=== PATIENT | female | born 2000 | race Caucasian/White ===

== ENCOUNTER 2022-12-21 11:51 | Outpatient (CLI) | payer OTHER, SELFPAY ==
--- NOTE | 2022-12-21 12:15 | CRLHL7_ITS ---
For Patients: As a result of the Century Cures Act, medical imaging exams and procedure reports are released immediately into your electronic medical record. You may view this report before your referring provider. If you have questions, please contact your health care provider. INDICATION: Evaluate anatomy. COMPARISON: 10.07.22 TECHNIQUE: Real time james scale imaging of the fetus was performed as well as color Doppler analysis of the umbilical vessels. FINDINGS: Sonographic imaging demonstrates a single living intrauterine gestation. Fetus demonstrates a regular cardiac rate of 149 beats per minute. Fetus has a vertex position. The placenta lies posteriorly without evidence of placenta previa. The edge of the placenta is located 7.5 cm from the internal cervical os. Amniotic fluid volume appears normal. Single deepest vertical pocket: 5.0 cm. The cervix is closed and measures 4.2 cm in length. The composite ultrasound gestational age is calculated at 19 weeks 3 days with an estimated sonographic due date of 05/14/2023. The estimated weight is 278 grams which lies at the 10th %. The following biometric measurements were obtained: Biparietal diameter: 4.5 cm/19 weeks 5 days 38th% Head circumference: 16.5 cm/19 weeks 1 day 11th% Abdominal circumference: 13.7 cm/19 weeks 1 day 17th% Femur length: 3.0 cm/19 weeks 1 day 17th% The HC/AC ratio measures: 1.21 range (1.08-1.26) On anatomic survey, there is a normal appearance of the cerebral ventricles, cavum septi pellucidi, cisterna magna and cerebellum. The profile is difficult to evaluate due to position. The nose, lips and orbital view appear normal. The cervical, thoracic and lumbar spine are well visualized and appear normal. There is a normal four-chamber heart view and the left and right ventricular outflow tracts appear normal. The diaphragm and stomach appear normal. The kidneys and bladder also appear normal. There is a normal three-vessel cord and cord insertion site. The four extremities appear normal. IMPRESSION: Concordance of clinical and sonographic dating. Incomplete visualization of the profile due to position. Remainder of the anatomic survey is normal. Short-term follow-up recommended. Dictated by Norm Kraft MD @ 12/21/2022 1:11:26 PM (Electronically Signed)
== END 2022-12-21 11:52 | disposition home or self-care (01) ==
LOC: US 11:52
PROVIDERS: PCP Nurse Practitioner Family; Visit Provider Physician Assistant
DX: Z34.92 Encounter for supervision of normal pregnancy, unspecified, second trimester (principal); Z3A.19 19 weeks gestation of pregnancy
CPT/HCPCS: 76805

== ENCOUNTER 2023-02-17 11:42 | Outpatient (CLI) | payer OTHER, SELFPAY | END 2023-02-17 11:43 | disposition home or self-care (01) | LOC: NFLDREF 11:43 | PROVIDERS: PCP Nurse Practitioner Family; Visit Provider Advanced Practice Midwife | DX: Z34.93 Encounter for supervision of normal pregnancy, unspecified, third trimester (principal) | CPT/HCPCS: 86592; 86850; J2791 ==

== ENCOUNTER 2023-04-21 13:29 | Outpatient (CLI) | payer OTHER, SELFPAY ==
[2023-04-22 16:47] LABS: Strep B DNA Probe Positive (Negative); Strep B Susceptibility Needed? No
== END 2023-04-21 13:30 | disposition home or self-care (01) ==
LOC: NFLDREF 13:29
PROVIDERS: PCP Nurse Practitioner Family; Visit Provider Advanced Practice Midwife
DX: Z34.93 Encounter for supervision of normal pregnancy, unspecified, third trimester (principal)
CPT/HCPCS: 87081; 87653

== ENCOUNTER 2023-04-28 11:13 | Outpatient (CLI) | payer OTHER, SELFPAY ==
[2023-04-28] VITALS (12 sets, daily range): BP systolic 121–147; BP diastolic 64–84; PULSE 90–114; RESP 18; TEMP 36.9; O2SAT 97–98
--- NOTE | 2023-04-28 14:39 | W.PM.OBO ---
OB Outpatient HPI History of Present Illness Date Seen: 04/28/23 History of Present Illness: Jnaie is a 22 year old at 37 3/7 weeks gestation by 1st trimester US, ANDER 05/16/2023, presents to triage following clinic visit with elevated BP for extended blood pressure monitoring. She denies any headache, visual changes, or epigastric pain. She has been having some more frequent andry lozano but overall coping well with them. She denies any leaking of fluid or bleeding. Baby moving naturally: Yes Bleeding: No Contractions: Yes Leaking fluid: No Discharge: No Heartburn: No Back pain: No Meds Home Medications and Allergies Home Medications Medication Instructions Recorded Confirmed Type cholecalciferol (vitamin D3) 50 50 mcg PO QDAY 10/07/22 04/28/23 History mcg (2,000 unit) capsule prenat.vits,edward,hyr-fkvu-bftxs 1 tab PO QDAY 10/07/22 04/28/23 History psyllium husk 3.4 gram/5.4 gram 1 tsp PO QDAY PRN 10/07/22 04/28/23 History oral powder (Metamucil) doxylamine succinate 25 mg tablet 25 mg PO QHS PRN 11/04/22 04/28/23 History (Unisom (doxylamine)) pyridoxine (vitamin B6) 25 mg 25 mg PO QDAY 11/04/22 04/28/23 History tablet docusate sodium 100 mg capsule 100 mg PO QDAY 03/22/23 04/28/23 History (Dulcolax Stool Softener (docusate)) aspirin 81 mg tablet,delayed 81 mg PO QDAY 04/05/23 04/28/23 History release Allergies Allergy/AdvReac Type Severity Reaction Status Date / Time No Known Drug Allergies Allergy Verified 04/28/23 10:19 REPLACED BY [facility] Medical History Wrist fracture (11/30/10) ?S62.109A - Fracture of unspecified carpal bone, unspecified wrist, initial encounter for closed fracture (ICD-10) Vaginal discharge ?N89.8 - Other specified noninflammatory disorders of vagina (ICD-10) Irregular menstrual cycle ?N92.6 - Irregular menstruation, unspecified (ICD-10) Acquired hallux valgus ?M20.10 - Hallux valgus (acquired), unspecified foot (ICD-10) Surgical History History of oral surgery (2014) ?Z98.890 - Other specified postprocedural states (ICD-10) History of bunionectomy of both great toes (2013) ?Z98.890 - Other specified postprocedural states (ICD-10) History of bilateral breast reduction surgery (10/2017) ?Z98.890 - Other specified postprocedural states (ICD-10) Family History Maternal Grandmother Stroke High blood pressure Thyroid disease Aunt Diabetes Maternal Grandfather Heart disease Social History Narrative: does not drink alcohol, exercises regularly 4-5 times per week, nonsmoker, student,no kids Smoking Status: Never smoker Little interest or pleasure in doing things: not at all Feeling down, depressed, or hopeless: not at all History History 1 Elective abortions Para 0 Spontaneous abortions Hx # Term Pregnancies Ectopic pregnancies Hx # Pregnancies Multiple births Number of Living Children OB - H&P: Exam Physical Exam Vital signs: Temp Pulse Resp BP Pulse Ox 98.4 F 93 18 138/82 98 04/28/23 11:30 04/28/23 14:25 04/28/23 11:30 04/28/23 14:25 04/28/23 11:32 Narrative: Exam done w/ clinic visit. Assessment and Plan Assessment and plan (1) Elevated BP without diagnosis of hypertension: Status: Acute (2) 37 weeks gestation of : Status: Acute Plan at 37 3/7 weeks gestation Elevated BP without diagnosis of HTN After 4 hours of monitoring, BP had normalized. Initially it was in the 140/80's. She denies any further concerns for Pre-eclampsia. Plan for her to return to clinic tomorrow for BP check and possible admission. Reviewed s/sx of pre-eclampsia and labor and when to return. All questions answered.
--- NOTE | 2023-04-28 16:48 | PC.OBNST ---
NST Note NST Note Start: 04/28/23 11:29 Freq: ONCE Status: Active Protocol: Document 04/28/23 15:31 ABDIRAHMAN (Rec: 04/28/23 16:48 ABDIRAHMAN [id number]) NST Note 1 Para (# of births) 0 EDC 05/16/23 Gestational Age In Weeks & Days 37 Weeks & 3 Days Patient Presented with Complaint(s) of Other Other Complaints High blood pressure's in clinic. On unit for observation directly from clinic to determine diagnosis for GHTN. Reactive Yes Appropriate for Gestational Age Yes ROSANGELA Evangelista, RNC Reactive Yes Appropriate for Gestational Age Yes ROSANGELA Santos, RN Date 04/28/23 OB NST charge Yes Complete NST Note via Write Note Yes The provider's electronic signature indicates the NST is reactive/appropriate for gestational age. *Note to provider: If an addendum is required, open the patient's chart and click on the note under the Nurse/Allied Health tab.
== END 2023-04-28 15:36 | disposition home or self-care (01) ==
LOC: OB OUT 11:14 → OB 11:16
PROVIDERS: PCP Nurse Practitioner Family; Visit Provider Advanced Practice Midwife
DX: O16.3 Unspecified maternal hypertension, third trimester (principal); Z3A.37 37 weeks gestation of pregnancy
CPT/HCPCS: 59025; 99213

== ENCOUNTER 2023-05-02 11:51 | Inpatient (IN) | payer OTHER, SELFPAY ==
[2023-04-28 23:00] VITALS: BP 144/83; PULSE 100
--- NOTE | 2023-04-28 23:25 | P.LDBA_ITS ---
Subjective History of Present Illness Date Seen: 04/28/23 Narrative: Janie is a at 37 3/7 weeks gestation being admitted to Labor and Delivery for IOL for GHTN diagnosed by elevated BP more than 4 hours apart. She was seen earlier today in clinic for a routine visit and noted to have elevated BP. She was monitored in triage for 4 hours with normotensive blood pressures at time of discharge with plan to return tomorrow for a BP check in clinic and possible IOL if BP was elevated. She presents this evening to triage for concern of a headache. She said her headache started this evening and she has taken Tylenol but it has not really helped. She feels it is more of a nagging headache but was worried when she knew her BP was elevated in clinic. She has a wrist BP monitor at home which she used to check her BP at home and it was elevated. She denies any other symptoms of pre-e including epigastric pain or blurred vision. She has been having mild contractions but feels they are less than earlier. Her full history and physical was dictated by RAMOS Lopez today, 04/28/2023, in clinic. Please see this for details. Specific Issues/Plans H&P done by RAMOS Lopez on 04/28/2023 1. Obesity, BMI 38.3 * Hemoglobin A1c: 5.0% * Aspirin 81 mg * Consider weekly NST starting at 37 weeks, scheduled 2. History of depression. Has been off treatment for approximately 1 year, doing well. Previously treated with Lexapro 3. History of breast reduction 4. Rh negative * Rhogam: 02/17/2023 * Recommend Rhogam PP 5. EFW 10% at 20 weeks. anatomy normal, however suboptimal views of profile. RESOLVED * Refer to M: ANDER changed by [facility], based on dating LMP, corrected by cycle length (34 days): New ANDER 05/16/2023 Normal anatomy, EFW 51st percentile. Incidentally, placenta is anterior and left lateral, not posterior as suggested by initial anatomy scan. 6. GBS Positive, recommend antibiotics in labor 7. GHTN, dx 04/28 COVID: Declined TDAP: 03/03/2023 Flu: received at 27 weeks RSV: OB - Problem Based A/P Additional Plan (1) Encounter for induction of labor: Status: Acute (2) Gestational hypertension: Status: Acute (3) 37 weeks gestation of : Status: Acute (4) Rh negative status during : Status: Acute (5) Group B Streptococcus carrier, antepartum: Status: Acute Plan ASSESSMENT:? 22 at 37 3/7 weeks gestation? complicated by:?Gestational hypertension, Obesity, hx of depression, hx of breast reduction, Rh negative Labor type: Induced, not in labor? Category 1 FHR pattern.?? Labor complicated by: GHTN? GBS positive? Rh negative ? PLAN:? 1. Routine intrapartum cares as ordered. Discussed IOL options with likely misoprostol or Cervidil. Will consider rest this evening and start IOL in am depending on labs. If any concerns with labs or unable to resolve headache with medication, would recommend starting IOL tonight. 2. Monitoring per policy, continuous? 3. Patient undecided about pain management in labor. Candidate for analgesia of choice if desired. Patient encouraged to reposition and ambulate to promote physiologic labor and .? 4. Continue to monitor BP hourly or more frequent if necessary per protocol. Pre-e labs pending. Discussed dx of severe pre-e if unable to alleviate he adache. Plan to try Reglan for headache. Dr. Patton is aware of patient and agrees with plan. 5. GBS prophylaxis initiated for GBS positive status. Will treat with antibiotics per protocol. 6. Anticipate ? Delivery/Labor/Induction Plan Plan: induction OB Exam Physical Exam Vital signs: Pulse BP 100 144/83 H 04/28/23 23:00 04/28/23 23:00 Narrative: Vitals Reviewed Constitutional:? Alert and oriented x3 HEENT:? Normocephalic, atraumatic Neck:? Supple Lungs:? Clear to auscultation bilaterally Heart:? Regular rate and rhythm, no murmur, rub or gallop Abdomen:? Soft, nontender, and gravid. Vertex by Bert's Extremities:? No edema or erythema Cervix: deferred for now, will check prior to starting IOL NST: 130 bpm/moderate variability/15x15 accelerations/no de celerations/contractions every 3-5 Detailed Labor and Delivery Exam Patient Gravid: Yes
[2023-04-28 23:59] VITALS: BMI 42.3
[2023-04-29] VITALS (29 sets, daily range): BP systolic 113–144; BP diastolic 55–92; PULSE 77–118; RESP 16–18; TEMP 36.6–37.1; O2SAT 81–100
[2023-04-29 00:01] LABS: Alanine Aminotransferase* 24 U/L (4-35); Aspartate Amino Transferase* 30 U/L (12-35); Blood Urea Nitrogen* 8 mg/dL (5-24); Creatinine* 0.6 mg/dL (0.5-1.5); Estimated Glomerular Filt Rate 128 ml/min
[2023-04-29] MEDS: METOCLOPRAMIDE 10 MG TABLET PO (00:12)
[2023-04-29 00:54] LABS: Total Protein Urine 14 mg/dL
[2023-04-29 00:55] LABS: Creatinine Urine 53.8 mg/dL
[2023-04-29 00:59] LABS: Hematocrit 35.2 % (33.0-51.0); Hemoglobin* 11.6 gm/dL (12.0-16.0); Mean Corpuscular HGB Conc 33 gm/dL (32-36); Mean Corpuscular Hemoglobin 28 pg (26-34); Mean Corpuscular Volume 84 fL (80-100); Platelet Count* 149 K/uL (140-440); White Blood Count* 10.92 K/uL (4.50-11.00)
[2023-04-29 01:00] LABS: Slide Review Reflex No
[2023-04-29] MEDS: ACETAMINOPHEN 500 MG TABLET 1000 MG PO (02:04)
[2023-04-29] MEDS: miSOPROStoL 25 MCG/0.25 TABLET VAGINAL ×3 (06:07→12:28)
[2023-04-29] MEDS: ONDANSETRON 2 MG/ML inj 4 MG IV ×2 (07:41→21:38)
--- NOTE | 2023-04-29 16:18 | PM.OBPNL ---
Subjective Date Seen: 04/29/23 Narrative: ?Janie is coping well with labor pain/contractions. ?Magdiel is with her for support. ?She would like to continue with breathing and position changes for comfort and pain management.?She has received 3 doses of vaginal Cytotec. She is now feeling more uncomfortable with contractions and breathing through some of them. Her BP's continue to be elevated highest 144/90. Objective Exam: General Appearance:? Calm, cooperative. ?No acute distress. ? Psychiatric Exam: Alert and oriented, appropriate affect Abdomen: Gravid Ctx: ?Q 2-3 min apart. ? ?Moderate ? FHTs: ?Baseline: 150. ? ? Variability: moderate. ?Accels: +. ? ?Decels: ?-. SVE: 2/75%/+1 Membranes: Intact ? Vital Signs: Last Vital Signs Temp 98.3 F 04/29/23 12:27 Pulse 102 H 04/29/23 15:51 Resp 16 04/29/23 06:05 BP 144/90 H 04/29/23 15:51 Pulse Ox 98 04/29/23 14:52 Plan Plan: Assessment:?? at 37.3 gestation?? GBS Positive Patient is coping well with challenges of labor.?? Labor type: Induced, Early labor? complicated by: Gestational hypertension, Obesity, hx of depression, hx of breast reduction, Rh negative Labor complicated by: Gestational hypertension, Rh negative, GBS positive Plan:?? Hold Cytotec at this time, reevaluate if contractions slow or decrease in intensity. Continue with routine intrapartum cares as ordered.?? Patient encouraged to move and change positions to promote physiologic labor and .?? Nonpharmacologic comfort measures per patient preference. Candidate for analgesia of choice if desired. IV antibiotics for GBS positive status start per protocol. Anticipate progress to NVD. ?
[2023-04-29] MEDS: AMPICILLIN 2 GM in 0.9 % SODIUM CHLORIDE Mini-bag 100 ML IVPB (19:28)
[2023-04-29] MEDS: hydrOXYzine pamoate 25 MG CAPSULE 100 MG PO (19:29)
[2023-04-29] MEDS: MORPHINE 10 MG/ML inj IM (19:29)
[2023-04-29] MEDS: OXYTOCIN 30 unit/500 ML in NS 30 UNIT/500 ML BAG IVPB (21:46)
[2023-04-29] MEDS: LACTATED RINGERS 1000 ML 1,000 ML 124 ML IV (21:46)
--- NOTE | 2023-04-29 22:48 | PM.OBPNL ---
Subjective Date Seen: 04/29/23 Narrative: ?Janie is coping well with labor pain/contractions. ?Kemal is with her for support. ?She would like to continue with rest and repositioning for comfort and pain management. Janie complains of painful contractions that she needs to breath through. Had MS and Vistaril for pain and sleep and is feeling nauseated. Vomited when up to the bathroom. She is having irregular contractions that have not increased in intensity for the last few hours. BP remain stable recently running 120-130/80-90's Objective Exam: VSS, afebrile General Appearance:? Calm, cooperative. ?No acute distress. ? Psychiatric Exam: Alert and oriented, appropriate affect Abdomen: Gravid Ctx: ?Q 2-6 min apart. ? ?Moderate ? FHTs: ?Baseline: 150. ? ? Variability: moderate. ?Accels: +. ? ?Decels: ?variable. SVE: 2/75%/+1 Membranes: Intact ? Vital Signs: Last Vital Signs Temp 98.7 F 04/29/23 19:12 Pulse 109 H 04/29/23 22:21 Resp 18 04/29/23 19:12 BP 124/71 04/29/23 22:21 Pulse Ox 98 04/29/23 14:52 Pelvic Exam Dilation (cm): 2 Effacement (%): 75 Station: +1 Contractions Monitor mode: External Contraction Frequency: 2-6 Contraction pattern: Irregular Contraction intensity: Moderate Assessment Assessment: induction ongoing Station: +1 Status: Category l Heart Rate Baseline: 150 Care Home Variability: Moderate (6-25) Monitor Accelerations: Present Monitor Decelerations: Variable Plan Plan: Assessment:?? at 37.4 gestation?? GBS positive Patient is coping well with challenges of labor.?? Labor type: Induced, Early labor? complicated by: Gestational hypertension, Obesity, hx of depression, hx of breast reduction, Rh negative Labor complicated by: Gestational HTN, Rh negative, GBS positive? Plan:?? Start IV Pitocin per protocol Continue with prophylactic antibiotics for GBS positive status Continue with close monitoring of BP per protocol Continue with routine intrapartum cares as ordered.?? Patient encouraged to move and change positions to promote physiologic labor and .?? Nonpharmacologic comfort measures per patient preference. Candidate for analgesia of choice if desired. Anticipate progress to NVD. ?
[2023-04-29] MEDS: AMPICILLIN 1 GM in 0.9 % SODIUM CHLORIDE Mini-bag 100 ML IVPB (23:05)
[2023-04-30] VITALS (82 sets, daily range): BP systolic 105–144; BP diastolic 52–94; PULSE 84–130; RESP 16–20; TEMP 36.6–37.9; O2SAT 97–100
[2023-04-30] MEDS: AMPICILLIN 1 GM in 0.9 % SODIUM CHLORIDE Mini-bag 100 ML IVPB ×5 (03:13→19:26)
[2023-04-30] MEDS: ONDANSETRON 2 MG/ML inj 4 MG IV ×5 (03:13→19:34)
[2023-04-30] MEDS: LACTATED RINGERS 1000 ML 1,000 ML 119 ML IV (03:17)
--- NOTE | 2023-04-30 06:08 | PM.OBPNL ---
Subjective Date Seen: 04/30/23 Narrative: ?Janie is coping well with labor pain/contractions, she denies feeling pain with most of her contractions. She has been sleeping off and on overnight. ?Kemal is with her for support. She had been doing the labor circuit last evening before bedtime but after being tucked into bed for the night wanted to sleep and reluctant to move and change positions including use of the peanut ball. She is currently up in the shower getting ready for the day. Objective Exam: VSS, afebrile General Appearance:? Calm, cooperative. ?No acute distress. ? Psychiatric Exam: Alert and oriented, appropriate affect Abdomen: Gravid Ctx: ?Q 2-6 min apart. ?Mild ? ? FHTs: ?Baseline: 145. ? ? Variability: minimal with short periods of moderate. ?Accels: +. ? ?Decels: ?periodic late. SVE: /+1 Membranes: Intact ? Vital Signs: Last Vital Signs Temp 98.7 F 04/30/23 05:41 Pulse 97 04/30/23 05:41 Resp 18 04/30/23 05:41 BP 126/90 H 04/30/23 05:41 Pulse Ox 98 04/29/23 14:52 Pelvic Exam Dilation (cm): 2 Effacement (%): 75 Station: +1 Contractions Monitor mode: External Contraction pattern: Irregular Contraction intensity: Moderate Pitocin Rate (mU/min): 6 Assessment Assessment: induction ongoing Station: +1 Status: Category l Heart Rate Baseline: 145 Monitor Accelerations: Present Monitor Decelerations: Episodic (late variables ) Tracing Comments: Has had periods of minimal variability with short periods of moderate. Plan Plan: Assessment:?? at 37.5 gestation?? GBS positive Patient is coping well with challenges of labor.?? Labor type: Induced, Early labor? complicated by: Gestational hypertension, Obesity, hx of depression, hx of breast reduction, Rh negative Labor complicated by: Gestational HTN, Rh negative, GBS positive? Plan:?? IV Pitocin per protocol, titrate per protocol. Continue with prophylactic antibiotics for GBS positive status Continue with close monitoring of BP per protocol Continue with routine intrapartum cares as ordered.?? Patient encouraged to move and change positions to promote physiologic labor and .?? Nonpharmacologic comfort measures per patient preference. Candidate for analgesia of choice if desired. Anticipate progress to NVD. ?
[2023-04-30] MEDS: ACETAMINOPHEN 500 MG TABLET 1000 MG PO (06:58)
--- NOTE | 2023-04-30 08:10 | PM.OBPNL ---
Subjective Date Seen: 04/30/23 Narrative: tracing was initially (around 0700) minimal to absent variability without accels or decels. After position change and IV fluid bolus the tracing improved to minimal to moderate variability. Janie, her and I had a discussion about a plan moving forward. We did discuss that if the strip continue to show minimal to absent variability without improvement that we would consult with the OB provider and the possibility of a section. We discuss rational for this and answered questions. We also discussed that with improved status options of Cytotec, Cervidil, and cook catheter. Discussed that Cytotec would not be advised at this time due to status. We discussed the possibility of Cervidil since it could be removed if necessary and the possible risks involved. Finally we discussed the cook catheter. After discussing the risks and benefits of each it was decided to proceed with the cook catheter. we can consider Pitocin with the cook catheter based on patient tolerance, status, and contractions. A cook was placed at 0805 with 60mL in each balloon. She tolerated it fail with lots of cramping. She did request nitrous to help with the pain. After placement tracing was improved with moderate variability, + accels, and -decels. I did encourage activity for labor progression and pain coping after placement of the cook. Will continue to monitor. Objective Vital Signs: Last Vital Signs Temp 97.9 F 04/30/23 06:48 Pulse 104 H 04/30/23 07:21 Resp 18 04/30/23 06:48 BP 113/73 04/30/23 07:21 Pulse Ox 97 04/30/23 06:47 Pelvic Exam Dilation (cm): 2 Effacement (%): 75 Station: -1 Contractions Monitor mode: External Contraction Frequency: occaional, patient denies feeling anything besides occasional cramping Contraction pattern: Irregular Contraction intensity: Moderate Pitocin Rate (mU/min): 0 Assessment Assessment: induction ongoing Station: -1 Status: Category l Heart Rate Baseline: 150 Long-Term Variability: Minimal (3-5) (had absent, then minimal, increased to moderate at time of cook placement) Monitor Accelerations: Present Monitor Decelerations: None Plan Plan: Induction ongoing. Cook placed. Anticipate . Monitor blood pressure per protocol. Continue with prophylactic antibiotics per unit policy.
[2023-04-30] MEDS: LACTATED RINGERS 1000 ML 1,000 ML 125 ML IV (11:00)
--- NOTE | 2023-04-30 12:30 | P.OBPN_ITS ---
Subjective Date Seen: 04/30/23 Narrative: Reported that the Cook balloon fell out. On SVE she was found to be 3-4cm with a bulging bag. She was not feeling some contractions at that time. Low dose Pitocin had been added before the cook fell out. Will plan to continue with Pitocin titration and will consider AROM if there is not much change. She thinks she would like an epidural before AROM but is not ready for it at this time. tracing is improved. It is a category 2 with moderate variability, good accels, and only occasional variable decels. Objective Vital Signs: Last Vital Signs Temp 97.9 F 04/30/23 06:48 Pulse 88 04/30/23 12:28 Resp 18 04/30/23 06:48 BP 123/66 04/30/23 12:28 Pulse Ox 97 04/30/23 06:47 Pelvic Exam Dilation (cm): 2 Effacement (%): 75 Station: -1 Contractions Monitor mode: External Contraction pattern: Irregular Contraction intensity: Moderate Pitocin Rate (mU/min): 0 Assessment Assessment: induction ongoing Station: -1 Status: Category l Heart Rate Baseline: 150 Reverse Unit Operator Fisherman Variability: Moderate (6-25) Monitor Accelerations: Present Monitor Decelerations: None Plan Plan: Continue Pitocin titration. Monitor blood pressures per policy. Epidural when desires. Encourage position changes. Consider AROM based on labor progression.
[2023-04-30] MEDS: LACTATED RINGERS 1000 ML 1,000 ML 999 ML IV (16:34)
[2023-04-30] MEDS: ROPIVACAINE 0.2% 100 ml 100 ML 12 MG EPIDURAL (16:35)
[2023-04-30] MEDS: LIDOCAINE 2% (PF) 5 ML VIAL EPIDURAL (16:35)
[2023-04-30] MEDS: fentaNYL 250 MCG/5 ML inj 100 MCG EPIDURAL (16:45)
--- NOTE | 2023-04-30 17:02 | P.ANBPRC_ITS ---
[facility] Medical History (Updated 04/28/23 @ 23:39 by Tana Haywood CNM) Wrist fracture (11/30/10) ?S62.109A - Fracture of unspecified carpal bone, unspecified wrist, initial encounter for closed fracture (ICD-10) Vaginal discharge ?N89.8 - Other specified noninflammatory disorders of vagina (ICD-10) Irregular menstrual cycle ?N92.6 - Irregular menstruation, unspecified (ICD-10) Acquired hallux valgus ?M20.10 - Hallux valgus (acquired), unspecified foot (ICD-10) Surgical History (Updated 04/28/23 @ 23:40 by Tana Haywood CNM) History of oral surgery (2014) ?Z98.890 - Other specified postprocedural states (ICD-10) History of bunionectomy of both great toes (2013) ?Z98.890 - Other specified postprocedural states (ICD-10) History of bilateral breast reduction surgery (10/2017) ?Z98.890 - Other specified postprocedural states (ICD-10) Family History Maternal Grandmother Stroke High blood pressure Thyroid disease Aunt Diabetes Maternal Grandfather Heart disease Social History Narrative: does not drink alcohol, exercises regularly 4-5 times per week, nonsmoker, student,no kids What is your current living situation?: I presently have a place to live Problems where you live: no known problems In the past 12 months, utilities in danger of being shut off: no In past 12 months, lack of transportation kept you from medical appts, meetings, work, or getting things needed for daily living: no In the past 12 mos, have been you worried that your food would run out before you had money to buy more?: never true In the past 12 mos, the food you bought just didn't last and you didn't have money to buy more?: never true Smoking Status: Never smoker How often does anyone, including family, friends and others, physically hurt you : never How often does anyone, including family, friends and others, insult or talk down to you: never How often does anyone, including family, friends and others, threaten you with harm: never How often does anyone, including family, friends and others, scream or curse at you: never Little interest or pleasure in doing things: not at all Feeling down, depressed, or hopeless: not at all Meds Home Medications and Allergies Home Medications Medication Instructions Recorded Confirmed Type cholecalciferol (vitamin D3) 50 50 mcg PO QDAY 10/07/22 04/29/23 History mcg (2,000 unit) capsule prenat.vits,edward,[id number] 1 tab PO QDAY 10/07/22 04/29/23 History psyllium husk 3.4 gram/5.4 gram 1 tsp PO QDAY PRN 10/07/22 04/29/23 History oral powder (Metamucil) doxylamine succinate 25 mg tablet 25 mg PO QHS PRN 11/04/22 04/29/23 History (Unisom (doxylamine)) pyridoxine (vitamin B6) 25 mg 25 mg PO QDAY 11/04/22 04/29/23 History tablet docusate sodium 100 mg capsule 100 mg PO QDAY 03/22/23 04/29/23 History (Dulcolax Stool Softener (docusate)) aspirin 81 mg tablet,delayed 81 mg PO QDAY 04/05/23 04/29/23 History release Allergies Allergy/AdvReac Type Severity Reaction Status Date / Time No Known Drug Allergies Allergy Verified 04/28/23 10:19 Results Vital Signs Vital Signs: Last Vital Signs Temp 97.9 F 04/30/23 06:48 Pulse 108 H 04/30/23 16:56 Resp 18 04/30/23 06:48 BP 120/68 04/30/23 16:56 Pulse Ox 100 04/30/23 16:59 Weight: 110.949 kg Height: 162.56 cm Anesthesia Procedures Epidural Insertion Patient Location: OB Start Time: 16:15 Stop Time: 17:15 Start Date: 04/30/23 Stop Date: 04/30/23 Reason for Block: primary anesthetic Patient Position: sitting Performed By: Samuel Cobos Preanesthetic Checklist: IV checked, risks and benefits discussed, surgical consent, monitors and equipment checked, pre-op evaluation, timeout performed and anesthesia consent Prep: chlorhexidine gluconate Monitoring: blood pressure monitoring, gambling monitor, continuous pulse oximetry and heart rate Approach: midline Vertebral Space: lumbar (1-5) Needle Type: Tuohy needle Injection Technique: continuous catheter Needle gauge: 17 Needle Length (cm): 10 cm Needle Insertion Depth (cm): 6 Catheter Gauge: 19 Catheter Type: multi-orifice Catheter at skin depth (cm): 12 Test Dose Result: negative and lidocaine 1.5% with epinephrine 1 to 200,000 Events: other
[2023-04-30] MEDS: PHENYLEPHRINE 100 MCG/ML SYRINGE IVP ×4 (17:19→19:27)
--- NOTE | 2023-04-30 19:57 | PM.OBPNL ---
Subjective Date Seen: 04/30/23 Narrative: I was called at 0530 for a prolonged deceleration down to the 40-60's. it recovered after approximately 5 minutes with position changes stopping Pitocin infusion, and IV fluid bolus. There was continued minimal to absent variability for the next 20-25 minutes. After baby had adequately recovered we discussed AROM vs restarting Pitocin titration. She would like to proceed with AROM. AROM with clear fluid was completed at 1841 and baby tolerated it well. tracing continued to look good with minimal variability and accelerations without decelerations. At 1936 there was another prolonged deceleration to the 80's that lasted 5 minutes. Baby recovered with position changes. A FSE was placed at that time to verify tracing. At that time I had a discussion with the patient and her and tolerance and remote from delivery. We discussed involving the OB provider for consultation to consider a delivery. She is agreeable to proceeding with a delivery if that is what is recommended stating that she would like to avoid an emergent delivery if possible. Dr. Gloria was called for consultation. We briefly discussed what to expect from a caesarean delivery and recovery. All questions were answered. Objective Vital Signs: Last Vital Signs Temp 97.9 F 04/30/23 06:48 Pulse 126 H 04/30/23 19:43 Resp 18 04/30/23 06:48 BP 141/76 H 04/30/23 19:43 Pulse Ox 100 04/30/23 17:30 Pelvic Exam Dilation (cm): 6 Effacement (%): 80 Station: -1 Contractions Monitor mode: External Contraction Frequency: occasional, mild to palpation Contraction pattern: Irregular Contraction intensity: Mild Pitocin Rate (mU/min): 0 Assessment Assessment: induction ongoing Station: -1 Amniotic Membrane Status: AROM Status: Category l Heart Rate Baseline: 155 Group Home Variability: Moderate (6-25) (minimal to moderate ) Monitor Accelerations: Present Monitor Decelerations: None Plan Plan: OB consultation for possible delivery.
--- NOTE | 2023-04-30 20:17 | P.OBCN_ITS ---
OB - CN: HPI Date of Consult Time Seen by Provider: 20:18 Date Seen: 04/30/23 Patient: [facility] Patient Consult date: 04/30/23 Requesting Physician: Eliza Pacheco CNM Primary Care Provider: Dahlia Garcia CNP Consult Narrative Reason for consult: nonreassuring FHTs Narrative: Janie is a 22 year old G 1 P 0 at 37.5 weeks gestation that was admitted to the Center on 04/28/23 for IOL due to gestational hypertension. Since early induction, patient's had intermittent late decelerations. She had a prolonged deceleration after epidural placement at 1720 to the 60s for 7 minutes. She was on 9u of pitocin since at that time. Pitocin was turned off. At 1936 she had another spontaneous 6 minutes decels. Pitocin was off at that time. Pitocin was unable to be started due to minimal variability after the first prolonged decel. She is currently 6/80/-1 with AROM at 1840. Minimal contractions without pitocin. Discussed that we are unable to start pitocin and given that she is not in labor on her own, it is unlikely that she'll be able to have a vaginal delive ry. She would feel more comfortable with proceed with delivery as she wants to avoid needing an emergency delivery. History History 1 Elective abortions Para 0 Spontaneous abortions Hx # Term Pregnancies Ectopic pregnancies Hx # Pregnancies Multiple births Number of Living Children 0 Labs GBS status: positive OB Labs: Lab Assessment Start: 04/28/23 23:08 Freq: ONCE Status: Complete Protocol: PC.OBGBS Activity Type Activity Date Activity User E-sign Co-sign Detail Recorded Client Recorded Date Recorded By Document 04/29/23 01:04 MISTI [id number] 04/29/23 01:04 MISTI 04/29/23 01:04 Lab Assessment GBS Status positive Is Patient Allergic to Penicillin? No Treatment Required OK Are Labs Available Yes Maternal Blood Type AB Maternal RH Factor Negative Evaluate Maternal Rubella Immune Status Immune Hepatitis B Surface Antigen Negative Maternal HIV Status Negative Maternal Syphillis (RPR) Status Negative [facility] Medical History (Updated 04/28/23 @ 23:39 by Tana Haywood CNM) Wrist fracture (11/30/10) ?S62.109A - Fracture of unspecified carpal bone, unspecified wrist, initial encounter for closed fracture (ICD-10) Vaginal discharge ?N89.8 - Other specified noninflammatory disorders of vagina (ICD-10) Irregular menstrual cycle ?N92.6 - Irregular menstruation, unspecified (ICD-10) Acquired hallux valgus ?M20.10 - Hallux valgus (acquired), unspecified foot (ICD-10) Surgical History (Updated 04/28/23 @ 23:40 by Tana Haywood CNM) History of oral surgery (2014) ?Z98.890 - Other specified postprocedural states (ICD-10) History of bunionectomy of both great toes (2013) ?Z98.890 - Other specified postprocedural states (ICD-10) History of bilateral breast reduction surgery (10/2017) ?Z98.890 - Other specified postprocedural states (ICD-10) Family History Maternal Grandmother Stroke High blood pressure Thyroid disease Aunt Diabetes Maternal Grandfather Heart disease Social History Narrative: does not drink alcohol, exercises regularly 4-5 times per week, nonsmoker, student,no kids What is your current living situation?: I presently have a place to live Problems where you live: no known problems In the past 12 months, utilities in danger of being shut off: no In past 12 months, lack of transportation kept you from medical appts, meetings, work, or getting things needed for daily living: no In the past 12 mos, have been you worried that your food would run out before you had money to buy more?: never true In the past 12 mos, the food you bought just didn't last and you didn't have money to buy more?: never true Smoking Status: Never smoker How often does anyone, including family, friends and others, physically hurt you : never How often does anyone, including family, friends and others, insult or talk down to you: never How often does anyone, including family, friends and others, threaten you with harm: never How often does anyone, including family, friends and others, scream or curse at you: never Little interest or pleasure in doing things: not at all Feeling down, depressed, or hopeless: not at all Meds Home Medications and Allergies Home Medications Medication Instructions Recorded Confirmed Type cholecalciferol (vitamin D3) 50 50 mcg PO QDAY 10/07/22 04/29/23 History mcg (2,000 unit) capsule prenat.vits,edward,[id number] 1 tab PO QDAY 10/07/22 04/29/23 History psyllium husk 3.4 gram/5.4 gram 1 tsp PO QDAY PRN 10/07/22 04/29/23 History oral powder (Metamucil) doxylamine succinate 25 mg tablet 25 mg PO QHS PRN 11/04/22 04/29/23 History (Unisom (doxylamine)) pyridoxine (vitamin B6) 25 mg 25 mg PO QDAY 11/04/22 04/29/23 History tablet docusate sodium 100 mg capsule 100 mg PO QDAY 03/22/23 04/29/23 History (Dulcolax Stool Softener (docusate)) aspirin 81 mg tablet,delayed 81 mg PO QDAY 04/05/23 04/29/23 History release Allergies Allergy/AdvReac Type Severity Reaction Status Date / Time No Known Drug Allergies Allergy Verified 04/28/23 10:19 OB - H&P: Exam Physical Exam: Vital signs: Temp Pulse Resp BP Pulse Ox 98.6 F 103 H 18 140/73 H 100 04/30/23 18:30 04/30/23 20:12 04/30/23 18:30 04/30/23 20:12 04/30/23 17:30 Narrative: Physical exam: General: No acute distress. In left lateral decubitus. Psych: Alert and oriented x3, full affect HEENT: Normocephalic, atraumatic Lungs: Unlabored breathing Neuro: No focal deficit. Mentating appropriately Abdomen: Gravid. Soft, nontender, nondistended. Pelvic exam: Deferred to OR OB - CN: A/P Assessment and Plan (1) Encounter for induction of labor: Status: Acute (2) Gestational hypertension: Status: Acute (3) 37 weeks gestation of : Status: Acute (4) Rh negative status during : Status: Acute (5) Group B Streptococcus carrier, antepartum: Status: Acute Plan CS Consent The patient was consented for section and blood. She understands that the four main categories of risk include pain, bleeding, infection, and damage to surrounding structures. Regarding infection, she understands that we will be delivering appropriate antibiotics, however that the risk of infection following section still is approximately 5%. She understands that though the risk is very low that there is always a risk of damage to the bladder, uterus, ovaries, fallopian tubes, bowels, ureters, or even the fetus. She understands that most injuries can be addressed at the time of surgery, however, such an injury may require additional surgeries to fix. Lastly, she understands that a section carries a risk of bleeding, and that while this bleeding can be addressed with multiple medical and surgical modalities, that there is the possibility of needing a blood transfusion. She reports she would accept a blood transfusion. She understands that a section does increase risks for future pregnancies and deliveries including, but not limited to, the risk of uterine rupture or placenta accreta. Hgb/ plt: 11.9/146 T&S: AB negative NST: 155 bpm baseline, moderate variability, positive acceleration, negative deceleration Radar Base: irritable Will proceed with delivery. OR team notified.
[2023-04-30] MEDS: CEFAZOLIN 2 GM INJ IVP (20:18)
[2023-04-30] MEDS: CEFAZOLIN 1 GM inj IVP (20:19)
[2023-04-30 20:24] LABS: Basophils Percent Auto 0.1 % (0.0-3.0); Hematocrit 36.2 % (33.0-51.0); Hemoglobin* 11.9 gm/dL (12.0-16.0); Immature Granulocytes Pct Auto 0.2 %; Mean Corpuscular HGB Conc 33 gm/dL (32-36); Mean Corpuscular Hemoglobin 27 pg (26-34); Mean Corpuscular Volume 83 fL (80-100); Neutrophils Percent Auto 84.7 % (42.0-72.0); Platelet Count* 146 K/uL (140-440); RDW Coefficient of Variation % 13.5 % (11.5-15.5); Red Blood Count 4.35 m/uL (4.00-5.20); White Blood Count* 13.61 K/uL (4.50-11.00)
[2023-04-30 20:29] LABS: Slide Review Reflex No
[2023-04-30] MEDS: AZITHROMYCIN 500 MG in 0.9 % SODIUM CHLORIDE 250 ml 250 ML 255 MG IVPB (21:10)
[2023-04-30] MEDS: KETOROLAC 30 MG/ML inj IVP (21:44)
--- NOTE | 2023-04-30 21:48 | P.OBPRC_ITS ---
Procedure Time Seen by Provider: 21:49 Date of procedure: 04/30/23 Procedure Done: Global Will [facility] bill your pro fee for this procedure?: Yes Blood Loss Measurement Type: QBL (585 mL) Bakri Used: No IV fluids (mL): 1,000 Urine Output (mL): 400 Urine Output Comment: Clear Anesthesia Type: Epidural Procedure Description: DELIVERY BY SECTION Date of Service: 04/30/2023 Delivery time: 2104 Summary: Admitted for induction of labor at 37 weeks 3 days due to gestational hypertension, Primary Lower uterine transverse section, Pfannenstiel, Closed with suture, QBL 585 cc, no complications Findings: Normal uterus, bilateral ovaries and tubes. Fetus in OP position. 8/9 Weight pending. Primary Indication: 1. Nonreassuring heart rate remote from delivery Procedures: Primary Lower uterine transverse section Specimens Removed: Placenta Surgeon: Annetta Gloria MD Anesthesia: Epidural and TAP Report: Prophylactic antibiotic, 3 g of Ancef and 500 mg Azithromycin was given before patient was taken to OR. After arrival to the operating room patient was placed in the supine position with left lateral tilt after bolus of epidural anesthesia. Laparotomy A pfannenstiel incision was made through the anterior abdominal wall with #10 scalpel approximately 2 cm above the pubic symphysis. The incision was extended sharply with the #10 scalpel through the subcutaneous tissue to the level of fascia. The fascia was entered sharply with a #10 scalpel (Pfannenstiel) in the midline and extended in semi-elliptical fashion bluntly with digits. The rectus muscles were in the midline bluntly with digits. The peritoneum was then entered bluntly. The peritoneal incision was then extended superiorly and inferiorly under direct visualization with care being taken to avoid bladder and bowel. No adhesions were noted. The peritoneal incision was enlarged bluntly by lateral traction from the surgeon's and waiter/waitress first class's hand. Noé retractor was inserted into the abdomen. Delivery A bladder flap was not developed as it was low off the lower uterine segment. A low transverse hysterotomy was made then with #10 scalpel and extended laterally and cephalad with fingers in a low transverse fashion with Manu Man technique with care being taken to avoid injury to the fetus. The amniotic cavity (membrane) was then entered with spontaneous rupture of membrane, and the amniotic fluid was noted to be clear, fetus was delivered cephalic. With delivery of the baby, 2 cm left uterine angle extension noted. Placenta was delivered spontaneously with steady traction on cord and manual separation of placenta from uterine wall. Closure Uterine cavity was cleaned after placental delivery with lap sponge x 2. Left uterine extension was closed with 0 Vicryl suture in a running locking continuous fashion. This was incorporated into the hysterotomy. The hysterotomy was closed in 2 layers with stitches using 0 Vicryl with continuous locking stitches. An imbricating layer of 0 Monocryl was placed. One figure of 8 placed at the left hysterotomy angle. Another pipetx-zh-uwoks was placed at the right hysterotomy angle. Hemostasis was achieved as needed with electrocautery. The ovaries/tubes/uterine surface were evaluated. They were found to be normal. Noé retractor removed and hemostasis was confirmed again. Suellen applied along the hysterotomy. Fascia was closed with running stitches using 0 Vicryl. Subcutaneous layer was irrigated. Hemostasis was checked for and found to be adequate. The subcutaneous layer was closed with running 2-0 chromic sutures. The skin was closed with monocryl subcuticular sutures . The incision was cleaned, Exofin applied, Mepilex was used as dressing. The procedure considered terminate at this time. Intraoperative Complications: None QBL: 585 cc Uterotonics: 40 units of Pitocin and 1 g of TXA Disposition: The patient tolerated the procedure well. She was recovered in Obstetric PACU for close monitoring in stable condition, with a contracted uterus and normal transvaginal bleeding. The infant was sent to mother?s bedside. The placenta was sent to pathology due to gestational hypertension nonreassuring heart rate tracing Debrief with OR team performed and specimen reviewed at the conclusion of the procedure. Pathology: specimen obtained, sent to pathology (Placenta) Surgery Debrief Performed: Yes Condition: stable Disposition: floor
--- NOTE | 2023-04-30 22:12 | P.ANES_ITS ---
Anesthesia Charges Start Date/Time Anesthesia Start Date: 04/30/23 Anesthesia Start Time: 20:49 Stop Date/Time Anesthesia Stop Date: 04/30/23 Anesthesia Stop Time: 22:09 Summary Emergency: [employer]GER
--- NOTE | 2023-04-30 22:13 | W.PM.NB ---
Nerve Block Nerve Block Time Seen by Provider: 22:00 Date Seen: 04/30/23 Type of block requested by surgeon for post-operative analgesia: TAP Side: bilateral Time out performed: Yes Verification of patient name: Yes Verification of date of : Yes Site marking: not applicable Name of person performing procedure: alexei Continuous monitoring Was continuous monitoring of O2 sat, B/P, court recording monitor, recorded every 15 minutes?: Yes Procedure Checklist: sterile prep and needles Ultrasound guided. Images saved: Yes Medications given in 5ml increments after negative aspiration: Marcaine %: 0.25 mL: 30 Needle gauge: 20 and Exparel mL: 10 Needle gauge: 20 Patient tolerated procedure well: Yes Block Charges Block Charge (with Pro Fee): TAP Bilateral Use of Ultrasound Machine for Block: Yes- US Guidance/pain block
[2023-05-01] VITALS (32 sets, daily range): BP systolic 118–129; BP diastolic 76–84; PULSE 81–104; RESP 16–18; TEMP 36.6–37.2; O2SAT 96–98
[2023-05-01] MEDS: KETOROLAC 30 MG/ML inj IVP ×3 (04:07→16:01)
[2023-05-01] MEDS: ENOXAPARIN 40 MG/0.4 ML INJ SUBCUT (04:07)
[2023-05-01] MEDS: SODIUM CHLORIDE 0.9 % (FLUSH) 10 ML SYRINGE IVF ×2 (04:08→16:03)
--- NOTE | 2023-05-01 09:33 | PM.OBPNVD1 ---
OB - PN:Subj Subjective Time Seen by Provider: 09:34 Date Seen: 05/01/23 Narrative: Overnight patient had no complaints. Her pain is well controlled on oral pain medications. Currently endorsing no pain and just cramping. She is tolerating a regular diet. She has passed flatus. She is not ambulating without difficulty yet. Reports that the area is to have her ambulate after breakfast. Lochia is scant. She is urinating with goodman. Patient denies chest pain, SOB, n/v, headache, RUQ pain, vision changes, dizziness. OB - PN: Obj Exam Physical Exam: Vital signs: Temp Pulse Resp BP Pulse Ox O2 Del Method 98.9 F 88 18 121/79 97 Room Air 05/01/23 07:30 05/01/23 07:30 05/01/23 08:15 05/01/23 07:30 05/01/23 07:30 05/01/23 07:30 Narrative: Physical exam: General: No acute distress Psych: Alert and oriented x4, full affect HEENT: Normocephalic, atraumatic Neck: No cervical adenopathy, no thyromegaly Heart: Regular rate and rhythm, no murmur rub or gallop Lungs: Clear to auscultation bilaterally Abdomen: Normoactive bowel sounds, soft, no tenderness, rebound, or guarding. Uterus is firm and 2 cm below the umbilicus. Incision: Dressing clean, dry, and intact. No surrounding erythema or induration. Appropriately tender. Lower extremities: 1+ bilateral lower extremity edema. Pelvic exam: Scant lochia. OB - PN: Obj Data Labs Labs: Laboratory Results - last 24 hr 04/30/23 05/01/23 20:19 06:12 WBC 13.61 H RBC 4.35 Hgb 11.9 L 10.0 L Hct 36.2 MCV 83 MCH 27 MCHC 33 RDW Coeff of Cristal 13.5 Plt Count 146 Neut % (Auto) 84.7 H Lymph % (Auto) 11.0 L [place] % (Auto) 4.0 Eos % (Auto) 0.0 Baso % (Auto) 0.1 Neut # (Auto) 11.50 H Lymph # (Auto) 1.50 [place] # (Auto) 0.50 Eos # (Auto) 0.00 Baso # (Auto) 0.00 Abs Immat Gran (auto) 0.00 Imm/Tot Granulo (auto) 0.2 OB - PN: A/P Delivery Assessment and Plan (1) Encounter for induction of labor: Status: Acute (2) Gestational hypertension: Status: Acute (3) 37 weeks gestation of : Status: Acute (4) Rh negative status during : Status: Acute (5) Group B Streptococcus carrier, antepartum: Status: Acute Plan Comments: Postoperative/post delivery Review: - Admitted for: Induction of labor secondary to gestational hypertension - Surgical procedure: Primary delivery due to nonreassuring heart tracing - Skin incision: Pfannenstiel - Closure: Suture - Quantitative blood loss: 558 mL - Intraoperative Complications: None - Urine output: 1.53 mL/kg/hour - Preop/pre delivery Hgb: 11.9 - Postop/post delivery Hgb: 10.0 Gestational hypertension - Based on mild range in blood pressures 4 hours apart and protein creatinine ratio of 0.2 - BPs overnight: 120 - 130s/ 50 to 80s - Symptoms: Denies headaches, visual disturbances, shortness of breath or abdominal pain - Magnesium: Currently not indicated - IV antihypertensives: Currently not indicated - Pre-eclampsia labs on 05/01: Hgb 11.6 Plt 149 Cr 0.6 ALT 24 AST 30 Postoperative care: - Diet: Advance as tolerated - Fluid: Encourage oral intake - Activity: Encourage ambulation and incentive spirometry - Pain: Acetaminophen, Ibuprofen, and oxycodone - DVT prophylaxis: SCDs and TEDs when not ambulating Discharge Planning - Follow up in 5-7 days for incision check and/or staple removal/ BP check in clinic - Follow Up: follow-up at 2 weeks and 6 weeks in clinic Baby's Status - Fetus: 8, 9, female - Location: Bedside Dispo: Patient is POD# 1. Need the following milestones: ambulate and urinate without Goodman. Anticipate discharge POD# 2.
[2023-05-01] MEDS: DOCUSATE SODIUM 100 MG CAPSULE PO (10:05)
[2023-05-01] MEDS: ACETAMINOPHEN 500 MG TABLET 1000 MG PO ×2 (13:05→18:59)
[2023-05-01] MEDS: IBUPROFEN 600 MG TABLET PO (23:44)
[2023-05-02 00:45] VITALS: RESP 16
[2023-05-02] MEDS: ACETAMINOPHEN 500 MG TABLET 1000 MG PO ×2 (00:59→09:38)
[2023-05-02 04:12] VITALS: BP 120/79; PULSE 83; RESP 16; TEMP 36.4; O2SAT 98
[2023-05-02] MEDS: ENOXAPARIN 40 MG/0.4 ML INJ SUBCUT (04:23)
[2023-05-02] MEDS: IBUPROFEN 600 MG TABLET PO ×2 (07:03→13:19)
[2023-05-02 08:26] VITALS: BP 127/85; PULSE 96; RESP 16; TEMP 36.6; O2SAT 98
[2023-05-02] MEDS: DOCUSATE SODIUM 100 MG CAPSULE PO (08:32)
--- NOTE | 2023-05-02 09:34 | P.DS_ITS ---
DS: Providers Provider Time Seen by Provider: 09:53 Date Seen: 05/02/23 Date of admission: 04/28/23 23:10 Primary care physician: Dahlia Garcia CNP Admitting Clinician: Tana Haywood CNM Consults: 04/30/23 20:27 Consult to Physician [CONS] Routine Comment: Consulting Provider: Annetta Gloria Has provider been notified: Yes Attending Physician on discharge: Tana Haywood CNM Date of Discharge: 05/02/23 DS: Diagnosis Discharge Diagnosis (1) Gestational hypertension: Status: Acute (2) S/P section: Status: Acute (3) Mixed anxiety depressive disorder: Status: Acute (4) Insomnia: Status: Acute (5) Depression: Status: Acute (6) Comedonal acne: Status: Acute (7) Class 1 obesity: Status: Acute (8) Vitamin D deficiency: Status: Acute (9) History of bilateral breast reduction surgery: Status: Acute (10) Rh negative status during : Status: Acute Exam Narrative: Exam Narrative: Physical exam: General: No acute distress Psych: Alert and oriented x4, full affect HEENT: Normocephalic, atraumatic Neck: No cervical adenopathy, no thyromegaly Heart: Regular rate and rhythm, no murmur rub or gallop Lungs: Clear to auscultation bilaterally Abdomen: Normoactive bowel sounds, soft, no tenderness, rebound, or guarding Incision: Appropriately tender to palpation. Clean, dry, and intact. No erythema, induration, or abnormal discharge/breakdown Lower extremities: 1+ lower extremity edema bilaterally Pelvic exam: No bleeding noted on pad Const: Vital Signs, click to edit/add: Vital Signs - 24 hr 05/01/23 10:15 05/01/23 11:15 05/01/23 12:00 Temperature 98.7 F Pulse Rate [Blood Pressure Cuff] 104 H Respiratory Rate 18 18 16 Blood Pressure [Ri ght Arm] 120/84 Pulse Oximetry 96 Oxygen Delivery Me thod Room Air 05/01/23 12:15 05/01/23 13:09 05/01/23 14:15 Temperature Pulse Rate [Blood Pressure Cuff] Respiratory Rate 16 16 16 Blood Pressure [Ri ght Arm] Pulse Oximetry Oxygen Delivery Me thod 05/01/23 15:15 05/01/23 16:00 05/01/23 16:15 Temperature 98.1 F Pulse Rate [Blood Pressure Cuff] 92 Respiratory Rate 16 18 18 Blood Pressure [Ri ght Arm] 127/83 Pulse Oximetry 98 Oxygen Delivery Me thod Room Air 05/01/23 17:15 05/01/23 18:15 05/01/23 19:45 Temperature Pulse Rate [Blood Pressure Cuff] Respiratory Rate 18 16 16 Blood Pressure [Ri ght Arm] Pulse Oximetry Oxygen Delivery Me thod 05/01/23 20:05 05/01/23 20:45 05/01/23 21:45 Temperature 98.1 F Pulse Rate [Blood Pressure Cuff] 96 Respiratory Rate 16 16 16 Blood Pressure [Ri ght Arm] 118/80 Pulse Oximetry 98 Oxygen Delivery Me thod Room Air 05/01/23 22:45 05/01/23 23:34 05/01/23 23:45 Temperature 97.8 F Pulse Rate [Blood Pressure Cuff] 100 Respiratory Rate 16 16 16 Blood Pressure [Ri ght Arm] 123/83 Pulse Oximetry 96 Oxygen Delivery Me thod Room Air 05/02/23 00:45 05/02/23 04:12 05/02/23 08:26 Temperature 97.6 F 97.8 F Pulse Rate [Blood Pressure Cuff] 83 96 Respiratory Rate 16 16 16 Blood Pressure [Ri ght Arm] 120/79 127/85 Pulse Oximetry 98 98 Oxygen Delivery Me thod Room Air Room Air OB - DS: Summary Hospital Course Hospital Course: Overnight patient had no complaints. Her pain is well controlled on oral pain medications. She has not needed oxycodone. Pain is well managed with ibuprofen and Tylenol alone. Discussed with patient that she could have increase in pain when she is discharged due to increased mobility and activities. She is tolerating a regular diet. She has passed flatus. She is ambulating without difficulty. Lochia is scant. She is urinating without goodman. Patient denies chest pain, SOB, n/v, headache, RUQ pain, vision changes, dizziness. Time spent discussing smoking cessation with patient: 3 to 10 minutes Peripartum Data Procedures: Procedures Operation Date: 04/30/23 21:00 Actual Procedure Side Surgeon p Section Annetta Gloria MD Infant Gender: Female Time Spent with Patient Time attestation: Total time spent providing and/or coordinating discharge services: Discharge Plan Discharge Disposition: Home, Self-Care Date of Admission: 04/28/23 23:10 Consulting Providers: Annetta Gloria Primary Care Provider: Dahlia Garcia Condition: Stable Anticipated Discharge Date/Time: 05/02/23 10:05 Discharge Medications: New acetaminophen 500 mg Tablet 1,000 mg PO Q6H PRN (Reason: Pain) 30 Days Qty: 60 0RF docusate sodium 100 mg Capsule 100 mg PO DAILY 30 Days Qty: 30 0RF ibuprofen 600 mg Tablet 600 mg PO Q6H PRN (Reason: Pain) 30 Days Qty: 30 0RF Lanolin (HPA) 100 % cream 1 applic topical Q1H PRN30 Days Qty: 7 2RF simethicone 80 mg Tablet,Chewable 80 - 160 mg PO Q4H PRN (Reason: Gas) 30 Days Qty: 30 0RF oxycodone 5 mg Tablet 5 mg PO Q6H PRN (Reason: Pain) Qty: 15 0RF (DME) Blood Pressure Cuff Misc See Rx Instructions .Route Qty: 1 0RF Rx Instructions: As directed Continued prenat.vits,edward,[id number] Tablet 1 tab PO QDAY cholecalciferol (vitamin D3) 50 mcg (2,000 unit) capsule 50 mcg PO QDAY Metamucil 3.4 gram/5.4 gram powder 1 tsp PO QDAY PRN Rx Instructions: mix into at least 4 oz water or juice before administering pyridoxine (vitamin B6) 25 mg tablet 25 mg PO QDAY Unisom (doxylamine) 25 mg tablet 25 mg PO QHS PRN metoclopramide HCl [Reglan] 10 mg tablet 10 mg PO Q6H PRN (Reason: nausea and vomiting) Qty: 30 2RF ondansetron HCl 4 mg tablet 4 mg PO TID PRN (Reason: nausea and vomiting) Qty: 30 3RF docusate sodium [Dulcolax Stool Softener (dss)] 100 mg capsule 100 mg PO QDAY Discontinued aspirin 81 mg tablet,delayed release (DR/EC) 81 mg PO QDAY Discharge Orders: Discharge Order (Routine); Ordered 05/02/23 Ordered By: Annetta Gloria Consulting provider completed their portion of the discharge: Yes Patient Education: (DC) Follow Up Appointments: Dahlia Garcia, [employer] [Primary Care Provider] - Forms: [facility] Info Instructions Discharge Comments: POSTOPERATIVE INSTRUCTIONS ACTIVITY No heavy lifting/pushing/pulling for 4-6 weeks. Do not lift anything more than about 15 lbs (such as laundry, groceries, children, pets), vacuum, push heavy doors or grocery carts, etc. You may climb stairs as tolerated. Do not put anything in the vagina for 6 weeks after surgery unless otherwise instructed by your doctor (including tampons, douching, sexual intercourse, etc). No driving for about 2 weeks after surgery, while you are taking narcotic pain medication, or until you feel that you are ready. Practice checking your blind spot and stepping hard on the brake. Avoid sitting or lying in bed for more than 2 hours at a time while you are awake to reduce your risk of blood clots. You may return to work when directed by your physician. Please contact your doctor if you need any return to work letters or medical leave paperwork to be completed. WOUND CARE You will have one large incision on your abdomen. There will be dissolvable stitches under your skin that do not need to be removed. You will also have surgical glue on the incisions, and these may be removed like a Band-Aid when they curl up at the edges. Shower daily after surgery. Clean your incision with mild antibacterial soap and water. Pat your incision dry with a clean towel. No tub baths until wound is completely healed. Wash your hands frequently, especially before touching your incision, changing any dressings, after using the restroom, and before eating. PAIN MANAGEMENT Take your oral pain medication as needed. You should be taking Ibuprofen 600mg every 6 hours with 1 gram of Tylenol every 6 hours. You can take these together every six hours or alternate them every 3 hours. You should then take the oxycodone as needed if you have breakthrough pain on top of the Tylenol and Ibuprofen. Some pain medications can cause constipation so you should take a stool softener (i.e. colace) while you are on these medications. You may also take milk of magnesia or Miralax for constipation. WHAT TO EXPECT AT HOME Recovery from surgery is generally 4-6 weeks, but sometimes longer for more strenuous activity. It is normal to be very tired during this time. It is normal to have some drainage or a small amount of vaginal bleeding after surgery which may last up to 6 weeks. You may go home with a goodman catheter in your bladder. You will need to follow up for a nurse visit in 7-10 days for removal. You will most likely experience gas pain, abdominal swelling, or shoulder pain for 24-72 hours after surgery. A warm shower, heating pad, and/or walking may help. WHEN TO CALL YOUR DOCTOR : Fever (>100.4?F or 38.0?C) or chills. Incision problems such as redness, warmth, swelling, or foul smelling drainage. Severe nausea or persistent vomiting. Bright red vaginal bleeding (soaking >1 pad/hour) or foul smelling vaginal drainage. Severe pain not relieved with pain medication. Pain and swelling in your legs, especially if it is only on one side and not the other. Pain with urination, cloudy urine, or foul smelling urine. Or if you have any other problems or questions. CALL 911 OR GO TO THE EMERGENCY ROOM IF YOU HAVE: Any shortness of breath, difficulty breathing, or chest pain. DS:Data Additional Comments Additional comments: Postoperative/post delivery Review: - Admitted for: Induction of labor secondary to gestational hypertension - Surgical procedure: Primary delivery due to nonreassuring heart tracing - Skin incision: Pfannenstiel - Closure: Suture - Quantitative blood loss: 558 mL - Intraoperative Complications: None - Urine output: 1.28 mL/kg/hour. Voiding freely without issues - Preop/pre delivery Hgb: 11.9 - Postop/post delivery Hgb: 10.0 Gestational hypertension - Based on mild range in blood pressures 4 hours apart and protein creatinine ratio of 0.2 - BPs overnight: 110 - 120s/ 50 to 80s - Symptoms: Denies headaches, visual disturbances, shortness of breath or abdominal pain - Magnesium: Currently not indicated - IV antihypertensives: Currently not indicated - Pre-eclampsia labs on 05/01: Hgb 11.6 Plt 149 Cr 0.6 ALT 24 AST 30 - RN will do BP teaching. She will log BP 2x per day. Patient knows to call if she has worsening PreE symptoms or BP >/=160/110. Postoperative care: - Diet: Advance as tolerated - Fluid: Encourage oral intake - Activity: Encourage ambulation and incentive spirometry - Pain: Acetaminophen, Ibuprofen, and oxycodone - DVT prophylaxis: PPx lovenox while inpatient. SCDs and TEDs when not ambulating Discharge Planning - Follow up in 5-7 days for incision check and/or staple removal/ BP check in clinic - Follow Up: follow-up at 2 weeks and 6 weeks in clinic Baby's Status - Fetus: 8, 9, female - Location: Bedside Dispo: Patient is POD#2. Need the following milestones: None. Anticipate discharge POD# 2.
[2023-05-02 12:11] VITALS: BP 139/84; PULSE 93; RESP 16; TEMP 36.7
== END 2023-05-02 14:20 | disposition home or self-care (01) | DRG 788 ==
PROVIDERS: Obstetrics & Gynecology; Admitting Provider Advanced Practice Midwife; Emergency Provider Family Medicine; PCP Nurse Practitioner Family; Visit Provider Advanced Practice Midwife
PROC: 10D00Z1 Extraction of Products of Conception, Low, Open Approach (ICD-10-PCS; CPT 59514; principal; 2023-04-30 20:45)
DX: O13.4 Gestational [pregnancy-induced] hypertension without significant proteinuria, complicating childbirth (principal); O76 Abnormality in fetal heart rate and rhythm complicating labor and delivery; O99.824 Streptococcus B carrier state complicating childbirth; G89.18 Other acute postprocedural pain; O99.214 Obesity complicating childbirth; E66.9 Obesity, unspecified; O26.893 Other specified pregnancy related conditions, third trimester; O99.344 Other mental disorders complicating childbirth; F41.8 Other specified anxiety disorders; Z67.91 Unspecified blood type, Rh negative; G47.00 Insomnia, unspecified; E55.9 Vitamin D deficiency, unspecified; L70.0 Acne vulgaris; Z3A.37 37 weeks gestation of pregnancy; Z37.0 Single live birth
CPT/HCPCS: 01967; 01968; 36415; 59200; 64488; 76942; 82565; 82570; 84156; 84450; 84460; 84520; 85018; 85025; 85027; 86850; 86870; 86880; 86900; 86901; 86906; 88307; 99140; A9270; C1726; C9290; J0290; J0456; J0665; J0690; J1650; J1885; J2270; J2274; J2371; J2405; J2590; J2765; J2795; J3010; J7050; J7120

== ENCOUNTER 2023-05-10 13:56 | Outpatient (CLI) | payer BC, SELFPAY | END 2023-05-10 13:57 | disposition home or self-care (01) | PROVIDERS: PCP Nurse Practitioner Family; Visit Provider Obstetrics & Gynecology | DX: Z39.2 Encounter for routine postpartum follow-up (principal) | CPT/HCPCS: 82565; 82570; 84156; 84450; 84460; 84520; 84550 ==

== ENCOUNTER 2023-05-19 14:22 | Outpatient (CLI) | payer BC, SELFPAY ==
--- NOTE | 2023-05-19 17:47 | W.PM.LAC.MC ---
Consult Note - Mom Date of Visit Date of visit: 05/19/23 information services consultant: Danielle Lenz Visit Code: Visit Patient's Information Phone number: [phone] : 1 Para: 1 Allergies No Known Drug Allergies Allergy (Verified 05/13/23 14:15) Mother's Medical History: Medical History (Updated 05/13/23 @ 16:31 by Eliza Pacheco CNM) Rh negative status during ?O26.899 - Other specified related conditions, unspecified trimester (ICD-10) ?Z67.91 - Unspecified blood type, rh negative (ICD-10) 37 weeks gestation of ?Z3A.37 - 37 weeks gestation of (ICD-10) GTN depression/anxiety breast reduction Work Plans: returns to work in 9 weeks Delivery Information Delivery type: Primary C/S; Labored Weeks Gestation: 37.5 Gestational Age: AGA Weight: 3.244 kg Discharge Weight: 3.066 kg Baby's Information Baby's Age at Visit: 19 days Baby's Provider or Clinic: Dr. Washington Jaundice: Yes (facial) Reason for Consult Reason for Consult: difficulty latching, concern for supply Past Experience Past Experience: No Current Frequency of Day Feedings: about every three hours around the clock Both Breasts: Yes (mom has attempted but is mostly bottle feeding) Pumping Pumping: Yes (pumping with every feeding) Quantity Pumped: about 2.5 oz each session Supplementing EMB Supplement: Yes (baby is supplemented with everything mom pumps) Formula Supplement: Yes (have started to add in a little formula with evening feeds) Baby Elimination Number of Wet Diapers a Day: 6 or more Number of BM a Day: 4 or more, yellow and seedy Onsite Pre-Feed weight: 3.244 kg Post-Feed weight: 3.292 kg Milk Transferred (mL): 48 Assessments/Interventions Assessments/Interventions: Met with mom and this now 19 day old ex- term AGA baby for consult. Mom reports that she would like to breastfeed, but after baby's struggles with jaundice and sleepiness in the first week or so of life she switched to exclusive pumping and bottle feeding. She occasionally tries to nurse baby but states she won't latch at all or she'll latch but won't suckle. She's pumping about every three hours, or with every feeding and gets about 2.5 oz total each time. Baby has started to seem unsatisfied after some feedings and mom is worried she soon won't be able to keep up with baby's needs. Breasts WNL- symmetrical with rounded lower quadrants, intramammary distance is < 1.5 inches. Nipples are everted and don't flatten or retract on compression, no damage noted. Mom reports hx of breast reduction surgery around the age of 17, has an anchor shaped scar. Baby has gained 36 grams/day since her 2 week WCC on 05/13 and is now about 2.5 oz above BW. POC deny any caput/cephalohematoma at delivery. They think she may favor turning her head to the left, but she has equal ROM in her extremities. Her palate is WNL. Her upper frenulum is a little tight and the gums reshma when the upper lip is flanged. She has a strong suck on a finger and the tongue extends past the gum line but not by much. There's also a lot of canoeing with lateralization. Her lower frenulum is visualized but might be posterior? Mom attempted to latch baby to the right side in the football position and after a few attempts she was successful. The latch looked wide, lips were flanged, mom was comfortable and reported a tugging feeling. Some swallows were heard and baby nursed about 20 minutes needing only some stimulation to stay awake. She came off on her own and mom offered the left side. Again after a few attempts she was able to latch her comfortably and baby nursed 10 - 15 minutes before getting sleepy and pacifying at the breast. Mom was shown how to remove her to protect her nipple and when she was weighed she had transferred 48 ml. Noticed that baby had developed what looked like suck blisters along bottom lip as well as in the center of the upper lip. POC were shown jaw massage, a tongue exercise and a cheek exercise to hopefully help with the latch/blisters. Mom really wants the experience/closeness of nursing so was happy this feeding went well. Plan: 1. Suggested mom nurse ALD, offering both sides each time. We discussed ideas to help baby latch if she's struggling (start with nipple shield, bait and switch with bottle, dream feed). Also discussed if she and/or baby are getting frustrated at a nursing attempt to stop and try again later. 2. Reviewed baby will need to be supplemented after every feeding and to start with 1.5 oz. Watch her cues and if she starts to fuss shortly after getting supplemented, it's probably time to increase the amount. Handout [place] Stomach Size given. 3. Suggested mom still incorporate some pumpings into her day, encouraged her to try to pump three times/day if possible. 4. Suggested POC practice the massage and exercises with every daytime diaper change. Will f/u on 05/27 to see how things are going. Could suggest bodywork and/or pediatric dental evaluation. Meds Home Medications and Allergies Home Medications Medication Instructions Recorded Confirmed Type prenat.vits,edward,[id number] 1 tab PO QDAY 10/07/22 05/13/23 History psyllium husk 3.4 gram/5.4 gram 1 tsp PO QDAY PRN 10/07/22 05/13/23 History oral powder (Metamucil) docusate sodium 100 mg capsule 100 mg PO QDAY 03/22/23 05/13/23 History (Dulcolax Stool Softener (docusate)) Allergies Allergy/AdvReac Type Severity Reaction Status Date / Time No Known Drug Allergies Allergy Verified 05/13/23 14:15
== END 2023-05-19 14:23 | disposition home or self-care (01) ==
LOC: OB LAC 14:25
PROVIDERS: PCP Nurse Practitioner Family; Visit Provider Physician Assistant
DX: Z39.1 Encounter for care and examination of lactating mother (principal)
CPT/HCPCS: G0463

== ENCOUNTER 2024-03-06 07:14 | Outpatient (CLI) | payer BC, SELFPAY | END 2024-03-06 07:15 | disposition home or self-care (01) | PROVIDERS: PCP Family Medicine; Visit Provider Family Medicine | DX: Z00.00 Encounter for general adult medical examination without abnormal findings (principal); E55.9 Vitamin D deficiency, unspecified; Z13.6 Encounter for screening for cardiovascular disorders; Z13.1 Encounter for screening for diabetes mellitus; N92.6 Irregular menstruation, unspecified; Z13.29 Encounter for screening for other suspected endocrine disorder | CPT/HCPCS: 80053; 80061; 82306; 84439; 84443 ==

== ENCOUNTER 2025-03-14 12:46 | Outpatient (CLI) | payer BC, SELFPAY | END 2025-03-14 12:47 | disposition home or self-care (01) | PROVIDERS: PCP Family Medicine; Visit Provider Family Medicine | DX: E55.9 Vitamin D deficiency, unspecified (principal); Z00.00 Encounter for general adult medical examination without abnormal findings; E66.01 Morbid (severe) obesity due to excess calories; Z68.34 Body mass index [BMI] 34.0-34.9, adult | CPT/HCPCS: 80053; 80061; 82306; 84443 ==